=== PATIENT | male | born 1980 | race African-American/Black ===

== ENCOUNTER 2022-03-15 15:01 | Emergency (ER) | payer OTHER ==
[~2022-03-15] VITALS: Ht 160 cm; Wt 56.2 kg
[2022-03-15] MEDS ORDERED: AMOX-CLAV 875-1 EACH PO (16:49)
== END 2022-03-15 17:36 | disposition home or self-care (01) ==
LOC: ER 15:01
DX: H60.02 Abscess of left external ear (principal); L02.212 Cutaneous abscess of back [any part, except buttock and flank]